=== PATIENT | female | born 1970 | race Caucasian/White ===

== ENCOUNTER 2021-05-01 17:39 | Emergency (ER) | payer OTHER, SELFPAY ==
--- NOTE | 2021-05-01 17:52 | ED.URI ---
HPI - URI/Sore Throat General Chief Complaint: Upper Respiratory Infection Stated Complaint: Sore Throat/Cough Time Seen by Provider: 05/01/21 17:52 Source: patient and RN notes reviewed History of Present Illness HPI Narrative: Patient is a 51-year-old female who presents the urgent care with complaints of sore throat, cough and chest congestion. Patient states that started last Thursday and seems to have gotten worse. States that she did have Covid last May and has been vaccinated with visor. Denies of any other illness in the home. States that she has been using DayQuil, NyQuil and ibuprofen for her symptoms. No other acute complaints. No acute distress noted. Patient aware of the plan of care. Some parts of this dictation were generated by voice recognition software and may contain typographical and/or grammatical inaccuracies. Related Data Allergies Allergy/AdvReac Type Severity Reaction Status Date / Time No Known Allergies Allergy Verified 05/01/21 18:09 Review of Systems Review of Systems: CONSTITUTIONAL: Denies fever, chills, or sweats. EYES: Denies visual changes, redness, or discharge. ENT: Denies rhinorrhea, congestion, otalgia. Reports of sore throat CARDIOVASCULAR: Denies chest pain, palpitations, or edema. RESPIRATORY: Reports of cough and chest congestion GASTROINTESTINAL: Denies abdominal pain, nausea, vomiting, or diarrhea. GENITOURINARY: Denies dysuria or hematuria. SKIN: Denies rash or itching. MUSCULOSKELETAL: Denies back pain, joint pain, or myalgia. NEUROLOGIC: Denies headache, numbness, or weakness. All other systems reviewed are negative, except as documented in HPI. [facility] Past Medical History Medical History (Updated 05/01/21 @ 18:33 by PRAKASH Cordero) Back pain Kidney stones Surgical History Surgical History Hx of section x4 Hx of cholecystectomy Hx of lithotripsy Hx of microdiscectomy x2 Hx of tubal ligation Family History Family History (Updated 02/22/16 @ 23:19 by DOCTOR UNKNOWN) Mother Family history of diabetes mellitus in first degree relative Social History Social History (Updated 07/26/19 @ 19:24 by Dani Montes) Tobacco type: e-cigarettes/vaping Alcohol intake: never Comments At the time of my signature, I reviewed and agree with the nursing past medical, surgical, social, and family history. There is no relevant family history pertinent to the patient complaint. Exam Narrative: GENERAL: This is a well-nourished, well-developed patient, in no apparent distress. HEAD: normocephalic, atraumatic. EYES: PERRL. Sclera clear/white. Vision is grossly intact. EARS: External ears normal, mild erythema noted to left canal without drainage, right auditory canal clear and without drainage, TMs normal without perforation. Hearing grossly intact. NOSE: External nose normal with no obvious nasal discharge, nares without redness, no rhinorrhea. THROAT: Mucous membranes moist, posterior pharynx clear. Mild postnasal drainage NECK: Neck supple, non-tender without lymphadenopathy, masses or thyromegaly. CARDIOVASCULAR: Regular rate and rhythm without murmurs, gallops, or rubs. RESPIRATORY: Clear to auscultation. Breath sounds equal bilaterally. No wheezes, rales, or rhonchi. SKIN: warm, intact with no suspicious lesions or rash, good texture and turgor. NEURO: awake, alert, and oriented to person, place and time. There were no obvious focal neurologic abnormalities. EXTREMITIES: No clubbing, cyanosis, or edema. Course Vital Signs Vital signs: Vital Signs Temperature 98.6 F 05/01/21 17:55 Pulse Rate 73 05/01/21 17:55 Respiratory Rate 16 05/01/21 17:55 Blood Pressure 146/67 H 05/01/21 17:55 Pulse Oximetry 100 05/01/21 17:55 Temperature 98.6 F 05/01/21 17:55 Pulse Rate 73 05/01/21 17:55 Respiratory Rate 16 05/01/21 17:55 Blood Pressure 146/67 H 05/01/21 17:55 P
[2021-05-01 17:55] VITALS: BP 146/67; PULSE 73; RESP 16; TEMP 37; O2SAT 100
== END 2021-05-01 18:35 | disposition home or self-care (01) ==
PROVIDERS: Emergency Provider Nurse Practitioner Family
DX: R05.9 Cough, unspecified (principal); Z20.822 Contact with and (suspected) exposure to COVID-19; J02.9 Acute pharyngitis, unspecified; F17.200 Nicotine dependence, unspecified, uncomplicated
CPT/HCPCS: 87081; 87426; 87880; 99213; C9803; G0463

== ENCOUNTER 2022-03-21 15:49 | Emergency (ER) | payer OTHER, SELFPAY ==
[2022-03-21 15:57] VITALS: BP 134/66; PULSE 91; RESP 16; TEMP 36.6; O2SAT 99
--- NOTE | 2022-03-21 16:06 | ED.GENADULT ---
HPI - General Adult General Chief complaint: Dental/Oral Stated complaint: Mouth Sore Time Seen by Provider: 03/21/22 16:13 Source: patient, RN notes reviewed and old records reviewed Mode of arrival: ambulatory Limitations: no limitations History of Present Illness HPI narrative: 52-year-old female presents to the [facility] with right upper and lower gum discomfort, swelling and irritation for couple of days. Patient states she was, try to call her dental office but they are closed. Concern for an abscess in back of the eye to the right upper. Related Data Allergies Allergy/AdvReac Type Severity Reaction Status Date / Time No Known Allergies Allergy Verified 05/01/21 18:09 Review of Systems Review of Systems: All systems reviewed & are unremarkable except as noted in HPI and below Constitutional: Constitutional: Reports no additional constitutional complaints, Denies chills and Denies fever(s) Eyes: Eyes: Reports no additional eye complaints ENT: Reports as per HPI Comments: Dental pain right upper and lower Cardiovascular: Cardiovascular: Reports no additional cardiovascular complaints, Denies chest pain and Denies dyspnea Respiratory: Respiratory: Reports no additional respiratory complaints, Denies cough and Denies dyspnea Musculoskeletal: Musculoskeletal: Reports no additional musculoskeletal complaints Integumentary/Breasts: Skin/Breast: Reports system reviewed and no additional complaints, except as docu Neurologic: Reports system reviewed and no additional complaints, except as documented Psychiatric: Psychiatric: Reports no additional psychiatric complaints Allergic/Immunologic: Allergic/Immunologic: Reports no additional allergic/immunologic complaints PMFSH Past Medical History Medical History Back pain Kidney stones Surgical History Surgical History Hx of section x4 Hx of cholecystectomy Hx of lithotripsy Hx of microdiscectomy x2 Hx of tubal ligation Family History Family History Mother Family history of diabetes mellitus in first degree relative Social History Social History Tobacco type: e-cigarettes/vaping Alcohol intake: never Comments At the time of my signature, I reviewed and agree with the nursing past medical, surgical, social, and family history. There is no relevant family history pertinent to the patient complaint. Exam Const: General: healthy appearing, no acute distress and alert Nutritional Appearance: well nourished Orientation/consciousness: patient oriented x3 Limitations: no limitations HENMT: Head: normal to inspection Ears: external ears normal, TM's normal bilaterally and EAC's normal General nose exam: Normal external nose present and Normal nasal mucous membranes and turbinates present Face and sinus: normal facial exam Mouth: Yes Normal oral and palatal mucosa present, Yes lip normal, Yes tongue normal and Yes other (Posterior gingiva on teeth 3 and 4, tender with swelling and increased eryt) Throat: posterior oropharynx normal, tonsils normal and uvula midline Eyes: Conjunctivae: conjunctivae normal Pupils: Equal, round and reactive pupils present Neck: Neck: normal visual inspection, no lymphadenopathy and no meningeal signs Chest: Chest palpation & inspection: normal inspection of the chest Resp: Effort & Inspection: normal respiratory effort Auscultation: clear to auscultation bilaterally Cardio: Rate: regular rate Rhythm: regular rhythm : General: Yes no CVA tenderness Back/Spine/Pelvis: Back: no CVA tenderness Skin: General skin exam: normal color Rashes: no rashes Wounds: no wounds Neuro: General: patient oriented x3, moves all extremities, no meningeal signs and no focal motor deficits Cranial
== END 2022-03-21 16:35 | disposition home or self-care (01) ==
PROVIDERS: Emergency Provider Nurse Practitioner; PCP Physician Assistant
DX: K04.7 Periapical abscess without sinus (principal); F17.290 Nicotine dependence, other tobacco product, uncomplicated
CPT/HCPCS: 99213; G0463

== ENCOUNTER 2022-10-18 14:30 | Emergency (ER) | payer OTHER, SELFPAY ==
[2022-10-18 14:38] VITALS: BP 149/87; PULSE 93; RESP 20; TEMP 36.8; O2SAT 100
--- NOTE | 2022-10-18 14:50 | ED.EYEPROB ---
HPI - Eye Problem General Chief complaint: Eye Problems Stated complaint: Right Eye Time Seen by Provider: 10/18/22 14:51 History of Present Illness HPI Narrative: Patient was treated at an Urgent Care 3 and half week goes for blepharitis to the left eye. Symptoms have mostly resolved to that eye. Last couple days she has had swelling and tenderness to her right lower eyelid. Patient has an appointment with her family eye doctor in 4 days. Patient states she has changed all of her eye makeup and throughout all the old and denies any new makeup. Related Data Allergies Allergy/AdvReac Type Severity Reaction Status Date / Time No Known Allergies Allergy Verified 10/18/22 14:48 Review of Systems Review of Systems: CONSTITUTIONAL: Denies fever, chills, or sweats. EYES: Denies visual changes, redness, or discharge. ENT: Denies rhinorrhea, congestion, sore throat, or otalgia. CARDIOVASCULAR: Denies chest pain, palpitations, or edema. RESPIRATORY: Denies cough or dyspnea. GASTROINTESTINAL: Denies abdominal pain, nausea, vomiting, or diarrhea. GENITOURINARY: Denies dysuria or hematuria. SKIN: Denies rash or itching. MUSCULOSKELETAL: Denies back pain, joint pain, or myalgia. NEUROLOGIC: Denies headache, numbness, or weakness. PSYCHIATRIC: Denies anxiety or depression. [facility] Past Medical History Medical History (Updated 10/18/22 @ 14:54 by PRAKASH Hutton) Back pain Kidney stones Surgical History Surgical History Hx of section x4 Hx of cholecystectomy Hx of lithotripsy Hx of microdiscectomy x2 Hx of tubal ligation Family History Family History Mother Family history of diabetes mellitus in first degree relative Social History Social History Tobacco type: e-cigarettes/vaping Alcohol intake: never Comments At time of signature, agree with nursing past medical, surgical, social and family history. There is no relevant family history pertinent to the presenting complaint Exam Narrative: GENERAL: Well-appearing, well-nourished, and in no acute distress. HEAD: Normocephalic, atraumatic. EYES: PERRLA and EOMI.no redness to the eye, no drainage, no blurred vision. no pain of the eye with movement. swelling and redness to the edge of the eyelid. believes it is a sty.to left lower lid. hordeolum present, no drainable abscess, mild eyelid redness and swelling. no concern for mervin-orbital cellulitis or orbital cellulitis ENT: Nares clear, no rhinorrhea or epistaxis. Mucous membranes moist. NECK: Supple. CHEST: Clear to auscultation. No respiratory distress. HEART: Regular rate and rhythm. No murmur heard. Normal peripheral pulses. ABDOMEN: Soft, nontender, nondistended, normal active bowel sounds. EXTREMITIES: Normal range of motion. No edema. SKIN: Warm, dry, no rash. NEURO: No focal deficits. Alert and oriented x3. Pitkin Coma Scale Eye Opening: Spontaneous 4 [place] Coma Scale Motor: Obeys Commands 6 [place] Coma Scale Verbal: Oriented 5 [place] Coma Scale Total 15 Course Course Level of Care: Express Care Visit Vital Signs Vital signs: Vital Signs Temperature 36.8 C 10/18/22 14:38 Pulse Rate 93 10/18/22 14:38 Respiratory Rate 20 10/18/22 14:38 Blood Pressure 149/87 H 10/18/22 14:38 Pulse Oximetry 100 10/18/22 14:38 Oxygen Delivery Room Air 10/18/22 14:38 Temperature 36.8 C 10/18/22 14:38 Pulse Rate 93 10/18/22 14:38 Respiratory Rate 20 10/18/22 14:38 Blood Pressure 149/87 H 10/18/22 14:38 Pulse Oximetry 100 10/18/22 14:38 Oxygen Delivery Room Air 10/18/22 14:38 At time of signature, agree with nursing past medical, surgical, social and family history. There is no relevant family history pertinent to the presenting complaint Please KAREN schedule a followup visit with your personal p
== END 2022-10-18 14:58 | disposition home or self-care (01) ==
PROVIDERS: Emergency Provider Nurse Practitioner Family; PCP Physician Assistant
DX: H00.012 Hordeolum externum right lower eyelid (principal)
CPT/HCPCS: 99213; G0463